=== PATIENT | male | born 1970 | race Caucasian/White ===

== ENCOUNTER → 2018-08-24 | Outpatient (CLI) | payer BC ==
--- NOTE | 2018-08-24 11:51 | XR ---
EXAMINATION TYPE: XR shoulder complete RT DATE OF EXAM: 08/24/2018 COMPARISON: NONE HISTORY: Pain TECHNIQUE: Three views are submitted. FINDINGS: The osseous structures are intact. There is no acute fracture or dislocation. Arthropathy of the AC joint noted. Right lung clear. IMPRESSION: 1. AC joint arthropathy. Correlate for rotator cuff disease.
== END | disposition home or self-care (01) ==
LOC: RADXRYALE 10:48
PROVIDERS: ATTEND Internal Medicine
DX: M19.011 Primary osteoarthritis, right shoulder (principal)

== ENCOUNTER → 2020-06-17 | Outpatient (CLI) | payer BC ==
--- NOTE | 2020-06-17 15:30 | US ---
EXAMINATION TYPE: US scrotum with doppler. Grayscale and color Doppler Duplex imaging performed of allison morrison scrotum. DATE OF EXAM: 06/17/2020 COMPARISON: NONE CLINICAL HISTORY: Scrotum mass N50.9. Palpable noted superior to right testicle x 3 months EXAM MEASUREMENTS: TESTICLES: Right Testicle: 4.7 x 3.6 x 3.1 cm Left Testicle: 5.0 x3.3 x 2.7 cm EPIDIDYMIS HEAD: Right Epididymis: 1.1 x 0.7 x 1.3 cm Left Epididymis: 0.5 x 1.6 x 1.2 cm PW and Color Flow Doppler was performed to assess for testicular vascularity; good bilateral color fl ow and waveforms are seen. There is no evidence of testicular torsion. At patient's palpable superior to right scrotal sac 2 masses were seen: in epidermal skin layer an ov al hypoechoic nodule is noted= 1.3 x 1.1 x 0.6cm and just posterior to this area another oval mixed a steff is seen = 1.4x 1.0 x 0.7cm. Presence of hydroceles: medial right scrotal sac = 3.7 x 2.9 x 0.9cm Left Scrotal henrique (mobile small calcification seen superiorly) is noted in small amount of fluid. Presence of varicoceles: no IMPRESSION: At patient's palpable superior to right scrotal sac 2 masses were seen: in epidermal skin layer an ov al hypoechoic nodule is noted= 1.3 x 1.1 x 0.6cm and just posterior to this area another oval mixed a steff is seen = 1.4x 1.0 x 0.7cm.
== END | disposition home or self-care (01) ==
LOC: RADUSWWP 14:28
PROVIDERS: ATTEND Urology
DX: N50.89 Other specified disorders of the male genital organs (principal); N49.2 Inflammatory disorders of scrotum
CPT/HCPCS: 76870; 93975

== ENCOUNTER → 2024-12-22 | Outpatient (CLI) | payer BC ==
--- NOTE | 2024-12-22 09:36 | US ---
EXAMINATION TYPE: US liver DATE OF EXAM: 12/22/2024 COMPARISON: NONE CLINICAL INDICATION: Male, 54 years old with history of R74.8 ABNORMAL LEVELS OF OTHER SERUM ENZYMES; Hx HTN, DM, Hernia surgery, and drinks socially. TECHNIQUE: Grayscale and color Doppler imaging of the right upper quadrant was performed. FINDINGS: EXAM MEASUREMENTS: Liver Length: 15.9 cm Gallbladder Wall: 0.3 cm CBD: 0.2 cm Right Kidney: 8.6 x 3.3 x 3.1 cm CLINICAL MEDICAL TRANSCRIPTIONIST NOTES: Pancreas: wnl Liver: wnl Gallbladder: wnl Evidence for sonographic Kessler's sign: No CBD: wnl Right Kidney: ? Midline kidney vs horseshoe kidney. Left kidney appears WNL IMPRESSION: 1. No evidence for acute process. 2. Hepatic steatosis. 3. 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 Further evaluation with CT with IV contrast for complete evaluation. [facility], , 12/22/2024 9:34 AM
== END | disposition home or self-care (01) ==
LOC: RADUSWWP 06:51
PROVIDERS: ATTEND Internal Medicine
DX: K76.0 Fatty (change of) liver, not elsewhere classified (principal); R74.8 Abnormal levels of other serum enzymes; E11.9 Type 2 diabetes mellitus without complications; I10 Essential (primary) hypertension; K46.9 Unspecified abdominal hernia without obstruction or gangrene
CPT/HCPCS: 76705

== ENCOUNTER → 2025-01-04 | Outpatient (CLI) | payer BC ==
[2025-01-04 15:36] LABS: African American GFR (CKD) >90 (>60 ml/min/1.73 sqM); Blood Urea Nitrogen 16 mg/dL (9-20); Non-African American GFR(CKD) >90 (>60 ml/min/1.73 sqM)
--- NOTE | 2025-01-04 17:16 | CT ---
EXAMINATION TYPE: CT abdomen w con DATE OF EXAM: 01/04/2025 4:15 PM COMPARISON: None. 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 CT DLP: 1341.8 mGycm, Automated exposure control for dose reduction was used. FINDINGS: LUNG BASES-: No visible nodule. No infiltrate. LIVER/GB: No calcified gallstones. Hepatic steatosis with mild enlargement of the right hepatic lo be. No space occupying hepatic lesion. Biliary tree is of normal caliber. PANCREAS: No inflammation. No distinct mass. SPLEEN: No splenic enlargement. No lesion seen. ADRENALS: No nodule. No thickening. KIDNEYS/BLADDER: There is evidence of horseshoe kidney. No hydronephrosis. No nephrolithiasis. No distinct renal mass. Urinary bladder grossly unremarkable. BOWEL: Visualized bowel loops are unremarkable. LYMPH NODES: No greater than 1cm abdominal or pelvic lymph nodes are appreciated. AORTA: No significant abnormality. OSSEOUS STRUCTURES: No significant abnormality is seen. OTHER: No significant additional abnormality is seen. IMPRESSION: 1. Uncomplicated horseshoe kidney. 2. Hepatic steatosis and enlargement of the right hepatic lobe. [facility], , 01/04/2025 5:13 PM
== END | disposition home or self-care (01) ==
LOC: RADCTMAIN 14:55
PROVIDERS: ATTEND Internal Medicine
DX: Q63.1 Lobulated, fused and horseshoe kidney (principal); K76.0 Fatty (change of) liver, not elsewhere classified; R16.0 Hepatomegaly, not elsewhere classified
CPT/HCPCS: 82565; 84520; 74160; 36415; Q9967